=== PATIENT | male | born 1990 | race African-American/Black ===

== ENCOUNTER 2020-08-11 20:58 | Emergency (ER) | payer BC, SELFPAY ==
--- NOTE | 2020-08-11 21:13 | ED.PSYCH ---
HPI - Psych General Chief Complaint: Anxiety Stated Complaint: wants to be evaluated for stress Time Seen by Provider: 08/11/20 21:00 Source: patient and RN notes reviewed Mode of arrival: ambulatory Limitations: no limitations History of Present Illness HPI Narrative: patient states that he feels stressed from a girlfriend, friends, his job. Says he can't concentrate on his job because of all these stressors. He denies being suicidal homicidal. He says he wants a note for some days off from work because he is under lot of stress. Says he has already been off for 5 days. He is here from [place] on his way to [place]. complaint: other ( stress) Onset (ago): day(s) (5) Duration: constant History of same: Yes Relieving factors: none Exacerbating factors: none Associated psychiatric symptoms: none Associated symptoms: denies other symptoms Treatments prior to arrival: none Related Data Home Medications Medication Instructions Recorded Confirmed No Home Medications 08/11/20 08/11/20 Allergies Allergy/AdvReac Type Severity Reaction Status Date / Time No Known Allergies Allergy Verified 08/11/20 21:23 Review of Systems Review of Systems: All systems reviewed & are unremarkable except as noted in HPI and below PMFSH Past Medical History Medical History (Updated 08/11/20 @ 21:26 by Zachary Maldonado MD) No active medical problems Surgical History Surgical History (Updated 08/11/20 @ 21:26 by Zachary Maldonado MD) No pertinent past surgical history Social History Social History (Updated 08/11/20 @ 21:27 by Zachary Maldonado MD) Smoking packs per day: 1 Smoking cigarettes per day: 20.0 Smoking status: Current every day smoker Tobacco type: cigarettes Alcohol intake: current Alcohol use details: occasional Substance use: never Gender identity (if verbalized by the patient): Male Exam Const: General: healthy appearing and no acute distress Nutritional Appearance: well nourished and thin Orientation/consciousness: patient oriented x3 HENMT: Head: normal to inspection Ears: external ears normal Eyes: Conjunctivae: conjunctivae normal Pupils: Equal, round and reactive pupils present EOM: EOMs intact bilaterally Resp: Effort & Inspection: normal respiratory effort Auscultation: clear to auscultation bilaterally Cardio: Rate: regular rate Rhythm: regular rhythm GI: GI Palp: Yes Soft to palpation and No Tenderness to palpation present (GI) Auscultation: normal bowel sounds Back/Spine/Pelvis: Cervical Spine: cervical ROM normal Thoracic/Lumbar Spine: thoraco-lumbar ROM normal Skin: General skin exam: normal color Neuro: General: patient oriented x3, moves all extremities and no focal motor deficits Speech: normal speech Gait exam (Neuro): Normal gait present Extrem: General: normal to inspection and no clubbing, cyanosis or edema Psych: Appearance: grossly normal and well kempt Mental Status: mental status grossly normal Affect: normal affect Attitude: cooperative Thought content: Yes Normal thought content present Other: Patient relates that he has been under lot of stress due to several social situations where he lives. He would like to be off from work for several days. Course Course Emergency Course: I explained to the patient that I would able to provide him a note that says [facility] I would not be able to give him days off from work because he feels he is having stress. I advised him to go see his primary care physician. When I declined to give him a note he says well 1 time I had this and they told me I was paranoid schizophrenic. I told him there is no evidence of that. He then asked if he had an UTI with that get him the days off. I told him no. Discharge Plan Discharge Clinical Impression: Stress and adjustment reaction Patient Disposition: Home, Self-Care Condition: Stable Instructions: Stress (ED)
[2020-08-11 21:14] VITALS: BP 120/70; PULSE 70; RESP 18; TEMP 37; O2SAT 98
--- NOTE | 2020-08-11 21:29 | PC.NURSE ---
patient at desk begging MD for a note, states what can I do to get time off from work. I can't loose my job, but I need a break from work. I just need a MD note for time off, refused
[2020-08-11 21:30] VITALS: BP 120/70; PULSE 70; RESP 18; TEMP 36.1; O2SAT 98
== END 2020-08-11 21:31 | disposition home or self-care (01) ==
PROVIDERS: Emergency Provider Emergency Medicine
DX: R43.9 Unspecified disturbances of smell and taste (principal)
CPT/HCPCS: 99281; 99282